=== PATIENT | male | born 1985 | race Caucasian/White ===

== ENCOUNTER 2020-04-23 19:24 | Emergency (ER) | payer OTHER ==
[~2020-04-23] VITALS: Ht 167.6 cm; Wt 68.0 kg
[2020-04-23 19:56] LABS: ABSOLUTE BASOPHILS 0.1 thou/uL (0.0-0.2); ABSOLUTE EOSINOPHILS 0.1 thou/uL (0.0-0.7); ABSOLUTE LYMPHOCYTES 2.6 thou/uL (0.8-5.3); ABSOLUTE MONOCYTES 0.5 thou/uL (0.0-1.2); ABSOLUTE NEUTROPHILS 1.2 thou/uL (1.6-8.1); BASOPHILS 2.6 %; EOSINOPHILS 2.6 %; HEMATOCRIT 45.5 % (42.0-52.0); HEMOGLOBIN 16.3 gm/dL (14.0-18.0); LYMPHOCYTES 57.1 %; MCH 38.5 pg (26.0-34.0); MCHC 35.7 g/dL (28.0-37.0); MCV 107.8 fL (80.0-100.0); MONOCYTES 10.3 %; MPV 8.1 fl. (7.2-11.1); NUCLEATED RBCS 0 /100WBC; PLATELET COUNT* 129 thou/uL (150-400); POLYS 27.4 %; RBC 4.22 mil/uL (4.50-6.00); WBC 4.6 thou/uL (4.0-11.0)
[2020-04-23 20:07] LABS: CALCIUM 7.9 mg/dL (8.5-10.1); CREATININE 1.1 mg/dL (0.6-1.3); POTASSIUM 3.2 mmol/L (3.5-5.1)
[2020-04-23 20:07] LABS: URINE BILIRUBIN NEGATIVE (Negative); URINE BLOOD NEGATIVE (Negative); URINE CLARITY CLEAR; URINE COLOR YELLOW; URINE GLUCOSE-RANDOM NEGATIVE (Negative); URINE KETONES NEGATIVE (Negative); URINE LEUKOCYTES-REFLEX NEGATIVE (Negative); URINE NITRITE-REFLEX NEGATIVE (Negative); URINE PROTEIN NEGATIVE (Negative); URINE SPECIFIC GRAVITY <= 1.005 (1.005-1.030); URINE UROBILINOGEN 0.2 E.U./dl (0.2-1.0)
[2020-04-23 20:11] LABS: ALBUMIN 3.6 g/dL (3.4-5.0); TOTAL BILIRUBIN 0.9 mg/dL (<0.1-1.0); TOTAL PROTEIN 7.5 g/dL (6.4-8.2)
[2020-04-23 20:24] LABS: AMP/METHAMP Negative (Negative); BARBITURATES Negative (Negative); BENZODIAZEPINES Negative (Negative); COCAINE Negative (Negative); METHADONE Negative (Negative); OPIATES Negative (Negative); PCP Negative (Negative); THC POSITIVE (Negative)
[2020-04-24 00:12] VITALS: BP 137/90
== END 2020-04-24 00:12 | disposition home or self-care (01) ==
LOC: M.ERS 19:24
PROVIDERS: Emergency Medicine
DX: G43.109 Migraine with aura, not intractable, without status migrainosus (principal); D69.6 Thrombocytopenia, unspecified; F10.10 Alcohol abuse, uncomplicated; I10 Essential (primary) hypertension; F17.210 Nicotine dependence, cigarettes, uncomplicated; Y90.8 Blood alcohol level of 240 mg/100 ml or more

== ENCOUNTER 2020-08-23 12:26 | Emergency (ER) | payer OTHER ==
[~2020-08-23] VITALS: Ht 177.8 cm; Wt 59.0 kg
[2020-08-23] MEDS ORDERED: LISINOPRIL2.5 MG PO (12:32)
[2020-08-23] MEDS ORDERED: VITAMIN B-1100 M2 PO (12:32)
[2020-08-23 12:51] LABS: ABSOLUTE BASOPHILS 0.1 thou/uL (0.0-0.2); ABSOLUTE LYMPHOCYTES 2.1 thou/uL (0.8-5.3); ABSOLUTE MONOCYTES 0.2 thou/uL (0.0-1.2); ABSOLUTE NEUTROPHILS 0.6 thou/uL (1.6-8.1); BASOPHILS 1.8 %; EOSINOPHILS 1.1 %; HEMATOCRIT 35.3 % (42.0-52.0); HEMOGLOBIN 12.4 gm/dL (14.0-18.0); MCH 37.1 pg (26.0-34.0); MCHC 35.1 g/dL (28.0-37.0); MCV 105.7 fL (80.0-100.0); MONOCYTES 6.2 %; MPV 6.6 fl. (7.2-11.1); NUCLEATED RBCS 0 /100WBC; PLATELET COUNT* 98 thou/uL (150-400); POLYS 20.9 %; RBC 3.33 mil/uL (4.50-6.00); RDW-CV 19.7 % (10.5-14.5); WBC 2.9 thou/uL (4.0-11.0)
[2020-08-23 12:59] LABS: CALCIUM 7.5 mg/dL (8.5-10.1); CREATININE 0.8 mg/dL (0.6-1.3)
[2020-08-23 13:00] LABS: POTASSIUM 2.7 mmol/L (3.5-5.1)
[2020-08-23 13:04] LABS: TOTAL BILIRUBIN 0.5 mg/dL (<0.1-1.0); TOTAL PROTEIN 6.8 g/dL (6.4-8.2)
--- NOTE | 2020-08-23 16:14 | EKG ---
[place] [address] ELECTROCARDIOGRAM REPORT Name: FOREST FONTANAEL CHANDLER Room: [facility]#: [id number] Admission: 08/23/20 Attend Phys: Discharge: Date of : 83 Date of Service: 08/23/20 1249 Report #: [id number] THIS REPORT FOR: //name// [facility] ED Test Date: 2020-08-23 Test Time: 12:49:36 Pat Name: VALENTIN FONTANA Department: Room: Gender: Boat Captain: : 1985 Requested By: Toi Nicholas Order Number: [id number] MD: Isiah Yee Measurements Intervals [place] Rate: 92 P: 78 CA: 139 QRS: 45 QRSD: 82 T: 2 QT: 409 QTc: 507 Interpretive Statements Sinus rhythm Prolonged QT interval No previous ECG available for comparison Electronically Signed On 08-23-2020 16:13:49 SYSTEMS MECHANIC by Isiah Yee [email or web address] <ELECTRONICALLY SIGNED> By: Isiah Yee MD, [facility] 08/23/20 1613 1249 Isiah Yee MD, FACC /EPI
[2020-08-23 17:10] LABS: URINE BILIRUBIN NEGATIVE (Negative); URINE BLOOD TRACE (Negative); URINE CLARITY CLEAR; URINE COLOR YELLOW; URINE GLUCOSE-RANDOM NEGATIVE (Negative); URINE KETONES NEGATIVE (Negative); URINE LEUKOCYTES-REFLEX NEGATIVE (Negative); URINE NITRITE-REFLEX NEGATIVE (Negative); URINE PROTEIN NEGATIVE (Negative); URINE UROBILINOGEN 0.2 E.U./dl (0.2-1.0)
[2020-08-23 17:18] LABS: AMP/METHAMP Negative (Negative); BARBITURATES Negative (Negative); BENZODIAZEPINES Negative (Negative); COCAINE Negative (Negative); METHADONE Negative (Negative); OPIATES Negative (Negative); PCP Negative (Negative); THC Negative (Negative)
[2020-08-24 15:50] VITALS: BP 153/97
== END 2020-08-24 15:50 ==
LOC: M.ERS 12:26
PROVIDERS: Family Medicine
DX: F10.129 Alcohol abuse with intoxication, unspecified (principal); F10.139 Alcohol abuse with withdrawal, unspecified; Y90.8 Blood alcohol level of 240 mg/100 ml or more; E87.6 Hypokalemia; R45.851 Suicidal ideations; Z20.828 Contact with and (suspected) exposure to other viral communicable diseases; I10 Essential (primary) hypertension; Z88.5 Allergy status to narcotic agent